=== PATIENT | female | born 1945 | race Caucasian/White ===

== ENCOUNTER 2020-12-17 11:58 | Outpatient (CLI) | payer MEDICARE, BC ==
[2020-12-18 13:03] LABS: SARS-CoV-2 PCR by NAA Not Detected (NotDetected)
== END 2020-12-17 11:59 | disposition home or self-care (01) ==
LOC: LABBT 11:58
PROVIDERS: ATTEND Ophthalmology Retina Specialist
DX: Z01.812 Encounter for preprocedural laboratory examination (principal); Z20.822 Contact with and (suspected) exposure to COVID-19
CPT/HCPCS: U0003; U0005

== ENCOUNTER 2020-12-22 05:52 | Day surgery (SDC) | payer MEDICARE, BC ==
[2020-12-21 12:18] VITALS: BMI 35.3
[2020-12-22] MEDS ORDERED: Cyclopentolate 1% Opth Drop 2 ML BOT ONE (06:14)
[2020-12-22] MEDS ORDERED: Phenylephrine 2.5% Ophth Soln 5 ML BOT ONE (06:14)
[2020-12-22] MEDS ORDERED: Midazolam HCl 2 mg/2 ml Vial ONE (06:19)
[2020-12-22] MEDS ORDERED: Fentanyl 100 MCG/2 ML VIAL ONE (06:19)
[2020-12-22] MEDS ORDERED: PROPOFOL 20 ML ONE (06:19)
[2020-12-22] MEDS ORDERED: EPINEPHrine 0.3 MG in Ophthalmic Irrigation Solution 500 ML IRR SCH (06:30)
[2020-12-22] MEDS ORDERED: Maxitrol 0.1% Opth Oint 3.5 GM TUBE ONE (07:18)
[2020-12-22] MEDS ORDERED: Triamcinolone 40 MG/ML VIAL ONE (07:18)
[2020-12-22] MEDS ORDERED: Bupivacaine PF 0.75% SDV 10 ML ONE (07:18)
[2020-12-22] MEDS ORDERED: Lidocaine 4% PF 5 ML AMP ONE (07:18)
[2020-12-22] MEDS ORDERED: Indocyanine Green 25 MG/10 ML VIAL ONE (07:18)
== END 2020-12-22 08:30 | disposition home or self-care (01) ==
LOC: SDC 05:52
PROVIDERS: ATTEND Ophthalmology Retina Specialist
PROC: 08T43ZZ Resection of Right Vitreous, Percutaneous Approach (ICD-10-PCS; principal; 2020-12-22)
PROC: 08NE3ZZ Release Right Retina, Percutaneous Approach (ICD-10-PCS; 2020-12-22)
DX: H35.371 Puckering of macula, right eye (principal); M19.90 Unspecified osteoarthritis, unspecified site; Z79.899 Other long term (current) drug therapy; Z88.0 Allergy status to penicillin; Z88.2 Allergy status to sulfonamides; Z88.5 Allergy status to narcotic agent
CPT/HCPCS: J0171; J2250; J2704; J3010; J3301; J3490

== ENCOUNTER 2023-02-08 09:58 | Outpatient (CLI) | payer MEDICARE, BC | END 2023-02-08 09:59 | disposition home or self-care (01) | LOC: SCSMRI 09:58 | PROVIDERS: ATTEND Psychiatry & Neurology Neurology | DX: R25.1 Tremor, unspecified (principal); I67.89 Other cerebrovascular disease | CPT/HCPCS: 70551 ==

== ENCOUNTER 2023-09-28 12:45 | Outpatient (CLI) | payer MEDICARE, BC | END 2023-09-28 12:46 | disposition home or self-care (01) | LOC: SCSMRI 12:45 | PROVIDERS: ATTEND Psychiatry & Neurology Neurology | DX: M48.061 Spinal stenosis, lumbar region without neurogenic claudication (principal); M51.26 Other intervertebral disc displacement, lumbar region; M51.27 Other intervertebral disc displacement, lumbosacral region | CPT/HCPCS: 72158 ==

== ENCOUNTER 2024-02-04 21:58 | Inpatient (IN) | payer MEDICARE, BC ==
[~2024-02-04 21:58] MED LIST: Iopamidol-370 76% 500 ML MDV (1 ML CHARGE) ONE
[2024-02-04 22:47] LABS: #Basophils 0.03 10x3/uL (0.0-0.2); %Basophils 0.3 % (0.0-1.0); %Eosinophils 2.6 % (0.0-10.0); %Lymphocytes 25.7 % (21.0-51.0); %Monocytes 10.1 % (0.0-10.0); Hematocrit 33.3 % (36.0-47.0); Mean Corpuscular Hemoglobin 30.8 pg (27.0-31.0); Mean Corpuscular Volume 93.3 fL (78.0-98.0); Mean Platelet Volume 9.5 fL (7.4-10.4); Platelet Count 243 10x3/uL (130-400); RBC Distribution Width 12.8 % (11.5-14.5); Red Blood Cell (RBC) Count 3.57 mill/uL (4.20-5.40)
[2024-02-04 23:00] LABS: INR-International Normal Ratio 0.9; PTT 29.8 sec (22.9-36.1); Prothrombin Time 12.5 sec (12.0-14.7)
[2024-02-04 23:04] LABS: ALT (SGPT) 11 U/L (8-55); AST (SGOT) 22 U/L (5-34); Albumin 3.6 g/dL (3.4-4.8); Alkaline Phosphatase 82 U/L (40-110); Anion Gap 13 mmol/L (10-20); BUN (Urea Nitrogen) 22 mg/dL (9.8-20.1); Bilirubin, Total 0.3 mg/dL (0.2-1.2); Calc. Creatinine Clearance 0 mL/min (70-130); Calcium 9.3 mg/dL (7.8-10.44); Carbon Dioxide 25 mmol/L (23-31); Chloride 105 mmol/L (98-107); Estimated GFR 59; Globulin 3.5 g/dL (2.4-3.5); Glucose 110 mg/dL (83-110); Lipase 36 U/L (8-78); Potassium 3.9 mmol/L (3.5-5.1); Protein, Total 7.1 g/dL (5.8-8.1); Sodium 139 mmol/L (136-145)
[2024-02-04 23:16] LABS: Troponin I 0.809 ng/mL (< 0.028)
[2024-02-04] MEDS ORDERED: Acetaminophen 500 MG TAB ONE (23:43)
[2024-02-04] MEDS ORDERED: Enoxaparin 30 MG (0.3 mL) SYRINGE ONE (23:43)
[2024-02-05] MEDS ORDERED: Ondansetron PF 4 MG/2 ML Vial IVP PRN ×2 (01:00→19:33)
[2024-02-05] MEDS ORDERED: Ondansetron ODT 4 MG TAB SL PRN (01:00)
[2024-02-05] MEDS ORDERED: fentaNYL 50 mcg/mL 1 mL Vial ONE ×2 (01:29→10:29)
[2024-02-05] MEDS ORDERED: Acetaminophen 650 MG Suppository PR PRN (01:31)
[2024-02-05] MEDS ORDERED: hydrALAZINE 20 MG/ML VIAL SLOW IVP PRN ×2 (01:39→03:56)
[2024-02-05 02:07] LABS: Troponin I 10.426 ng/mL (< 0.028)
[2024-02-05 04:52] VITALS: BMI 41.8
[2024-02-05] MEDS: Amlodipine 10 MG TAB PO SCH (05:06)
[2024-02-05] MEDS: Nitroglycerin 0.4 MG TAB (25 Tab Bottle) SL PRN (05:22)
[2024-02-05 06:10] LABS: #Basophils 0.03 10x3/uL (0.0-0.2); %Basophils 0.3 % (0.0-1.0); %Eosinophils 1.4 % (0.0-10.0); %Lymphocytes 30.7 % (21.0-51.0); %Monocytes 9.5 % (0.0-10.0); %Neutrophils 57.8 % (42.0-75.0); Hematocrit 31.8 % (36.0-47.0); Hemoglobin 10.5 g/dL (12.0-16.0); Mean Corpuscular Hemoglobin 30.5 pg (27.0-31.0); Mean Corpuscular Volume 92.4 fL (78.0-98.0); Mean Platelet Volume 9.8 fL (7.4-10.4); Platelet Count 216 10x3/uL (130-400); RBC Distribution Width 12.9 % (11.5-14.5); Red Blood Cell (RBC) Count 3.44 mill/uL (4.20-5.40)
[2024-02-05 06:28] LABS: Anion Gap 11 mmol/L (10-20); BUN (Urea Nitrogen) 21 mg/dL (9.8-20.1); Calc. Creatinine Clearance 85 mL/min (70-130); Calcium 8.8 mg/dL (7.8-10.44); Carbon Dioxide 26 mmol/L (23-31); Chloride 108 mmol/L (98-107); Estimated GFR 68; Glucose 100 mg/dL (83-110); Potassium 3.8 mmol/L (3.5-5.1); Sodium 141 mmol/L (136-145)
[2024-02-05 06:31] LABS: Troponin I 23.454 ng/mL (< 0.028)
[2024-02-05] MEDS: Nitroglycerin 2% Ointment 1 INCH/1 GM Packet TOP SCH ×2 (07:09→08:52)
[2024-02-05] MEDS: Nitroglycerin 0.4 MG TAB (25 Tab Bottle) SL STA (08:37)
[2024-02-05] MEDS: Aspirin Chewable 81 MG TAB PO SCH (08:54)
[2024-02-05] MEDS: Pantoprazole 40 MG VIAL IVP SCH (08:54)
[2024-02-05] MEDS ORDERED: Communication Order-Pharmacy FS SCH (09:15)
[2024-02-05] MEDS: Sodium Chloride 0.9% 1,000 ML IV SCH ×2 (10:15→16:46)
[2024-02-05] MEDS ORDERED: Midazolam HCl 2 mg/2 ml Vial ONE (10:29)
[2024-02-05] MEDS ORDERED: Lidocaine 1% (PF) 30 ML VIAL ONE (10:41)
[2024-02-05] MEDS ORDERED: Clopidogrel Bisulfate 300 MG TAB ONE (10:57)
[2024-02-05] MEDS ORDERED: Nitroglycerin 50 MG/250 ML BOT 250 ML ONE (11:35)
[2024-02-05] MEDS ORDERED: Heparin 10,000 UNITS/ 10 ML VIAL ONE ×2 (11:35→11:42)
[2024-02-05] MEDS ORDERED: Enoxaparin 100 MG (1 mL) SYRINGE SC SCH (12:00)
[2024-02-05] MEDS ORDERED: Acetaminophen 325 MG TAB ONE (13:43)
[2024-02-05] MEDS ORDERED: Lisinopril 10 MG TAB ONE (13:44)
[2024-02-05] MEDS: Lisinopril 10 MG TAB PO SCH ×2 (13:49→20:11)
[2024-02-05] MEDS: Acetaminophen 325 MG TAB PO PRN (13:50)
[2024-02-05] MEDS ORDERED: Iopamidol 370 76% 100 ML VIAL ONE (14:50)
[2024-02-05] MEDS: fentaNYL 50 mcg/mL 1 mL Vial SLOW IVP PRN (16:29)
[2024-02-05] MEDS: Gabapentin 300 MG CAP PO SCH (18:25)
[2024-02-05] MEDS: Lorazepam 0.5 MG TAB PO PRN (18:25)
[2024-02-05] MEDS ORDERED: Lorazepam 2 MG/ML VIAL SLOW IVP PRN (19:07)
[2024-02-05] MEDS ORDERED: Promethazine HCl 12.5 MG in Sodium Chloride 0.9% 50 ML IVPB PRN (19:32)
[2024-02-05] MEDS: Atorvastatin Calcium 40 MG TAB PO SCH (20:11)
[2024-02-05] MEDS: cloNIDine 0.2 MG TAB PO SCH (20:11)
[2024-02-05] MEDS: traZODone HCl 50 MG TAB PO SCH (20:11)
[2024-02-05] MEDS ORDERED: cloNIDine 0.3 MG TAB PO SCH (21:00)
[2024-02-06 05:25] LABS: #Basophils Less than 0.03 10x3/uL (0.0-0.2); #Eosinphils Less than 0.03 10x3/uL (0.0-0.7); %Basophils 0.2 % (0.0-1.0); %Eosinophils 0.1 % (0.0-10.0); %Lymphocytes 15.7 % (21.0-51.0); %Monocytes 11.3 % (0.0-10.0); %Neutrophils 72.3 % (42.0-75.0); Hematocrit 30.8 % (36.0-47.0); Hemoglobin 10.1 g/dL (12.0-16.0); Mean Corpuscular HGB CONC 32.8 g/dL (32.0-36.0); Mean Corpuscular Hemoglobin 30.4 pg (27.0-31.0); Mean Corpuscular Volume 92.8 fL (78.0-98.0); Mean Platelet Volume 10.2 fL (7.4-10.4); Platelet Count 220 10x3/uL (130-400); RBC Distribution Width 13.1 % (11.5-14.5); Red Blood Cell (RBC) Count 3.32 mill/uL (4.20-5.40)
[2024-02-06 06:00] LABS: ALT (SGPT) 22 U/L (8-55); AST (SGOT) 99 U/L (5-34); Albumin 3.2 g/dL (3.4-4.8); Alkaline Phosphatase 70 U/L (40-110); Anion Gap 11 mmol/L (10-20); BUN (Urea Nitrogen) 14 mg/dL (9.8-20.1); Bilirubin, Total 0.6 mg/dL (0.2-1.2); Calc. Creatinine Clearance 89 mL/min (70-130); Calcium 8.5 mg/dL (7.8-10.44); Carbon Dioxide 23 mmol/L (23-31); Cardiac Risk 3.9 (Less than 4.5); Chloride 108 mmol/L (98-107); Cholesterol 178 mg/dl (< 200 Desired); Estimated GFR 72; Globulin 2.9 g/dL (2.4-3.5); Glucose 99 mg/dL (83-110); HDL Cholesterol 46 mg/dL (>60 Neg Risk); LDL Cholesterol, Calculated 118 mg/dL; Potassium 3.7 mmol/L (3.5-5.1); Protein, Total 6.1 g/dL (5.8-8.1); Sodium 138 mmol/L (136-145); Triglycerides 72 mg/dL (Less than 150)
[2024-02-06 06:05] LABS: Hemoglobin A1c 5.4 % (4.0-6.0)
[2024-02-06] MEDS: Amlodipine 10 MG TAB PO SCH (09:25)
[2024-02-06] MEDS: Gabapentin 300 MG CAP PO SCH (09:25)
[2024-02-06] MEDS: Clopidogrel Bisulfate 75 MG TAB PO SCH (09:25)
[2024-02-06 19:02] LABS: Troponin I 12.987 ng/mL (< 0.028)
[2024-02-07] MEDS: Pantoprazole DR 40 MG TAB PO SCH (08:51)
[2024-02-08] MEDS: Sodium Chloride 0.9% 500 ML IV SCH (01:38)
[2024-02-09 20:10] VITALS: BP 130/70; TEMP 98.2
== END 2024-02-09 19:40 | DRG 322 ==
LOC: ERS 21:58 → ERHOLD 02-05 00:52 → 2NO 02-05 04:22 → OBSVTOIN 02-05 07:30
PROVIDERS: ADMIT Student in an Organized Health Care Education/Training Program; ATTEND Internal Medicine
PROC: 027034Z Dilation of Coronary Artery, One Artery with Drug-eluting Intraluminal Device, Percutaneous Approach (ICD-10-PCS; principal; 2024-02-05)
PROC: 4A023N7 Measurement of Cardiac Sampling and Pressure, Left Heart, Percutaneous Approach (ICD-10-PCS; 2024-02-05)
PROC: B2151ZZ Fluoroscopy of Left Heart using Low Osmolar Contrast (ICD-10-PCS; 2024-02-05)
PROC: B2111ZZ Fluoroscopy of Multiple Coronary Arteries using Low Osmolar Contrast (ICD-10-PCS; 2024-02-05)
DX: I21.4 Non-ST elevation (NSTEMI) myocardial infarction (principal); I16.1 Hypertensive emergency; Z68.41 Body mass index [BMI] 40.0-44.9, adult; M19.90 Unspecified osteoarthritis, unspecified site; I10 Essential (primary) hypertension; I45.10 Unspecified right bundle-branch block; E78.00 Pure hypercholesterolemia, unspecified; E66.9 Obesity, unspecified; R53.81 Other malaise; K21.9 Gastro-esophageal reflux disease without esophagitis; K44.9 Diaphragmatic hernia without obstruction or gangrene; Z88.5 Allergy status to narcotic agent; Z88.0 Allergy status to penicillin; Z88.2 Allergy status to sulfonamides; Z79.899 Other long term (current) drug therapy; Z98.890 Other specified postprocedural states
CPT/HCPCS: 36415; 71045; 71275; 76936; 80048; 80053; 80061; 83036; 83690; 83735; 83880; 84443; 84484; 85025; 85347; 85610; 85730; 92928; 93005; 93010; 93306; 93458; 93798; 94760; 96374; 99152; 99153; C1769; C1874; C1887; C9113; C9600; J1644; J1650; J2001; J2250; J3010; J7030; J7050; Q9967

== ENCOUNTER 2024-09-13 18:41 | Emergency (ER) | payer MEDICARE, BC ==
[2024-09-13 19:55] LABS: #Basophils 0.03 10x3/uL (0.0-0.2); %Basophils 0.3 % (0.0-1.0); %Eosinophils 0.9 % (0.0-10.0); %Lymphocytes 36.6 % (21.0-51.0); %Monocytes 10.5 % (0.0-10.0); %Neutrophils 51.4 % (42.0-75.0); Hematocrit 30.7 % (36.0-47.0); Hemoglobin 10.5 g/dL (12.0-16.0); Mean Corpuscular HGB CONC 34.2 g/dL (32.0-36.0); Mean Corpuscular Hemoglobin 29.7 pg (27.0-31.0); Mean Corpuscular Volume 86.7 fL (78.0-98.0); Mean Platelet Volume 10.2 fL (7.4-10.4); Platelet Count 232 10x3/uL (130-400); RBC Distribution Width 13.8 % (11.5-14.5); Red Blood Cell (RBC) Count 3.54 mill/uL (4.20-5.40)
[2024-09-13 20:06] LABS: Prothrombin Time 13.7 sec (12.0-14.7)
[2024-09-13 20:07] LABS: PTT 29.7 sec (22.9-36.1)
[2024-09-13 20:11] LABS: ALT (SGPT) 15 U/L (Less than 34); AST (SGOT) 33 U/L (11-34); Albumin 3.8 g/dL (3.1-4.5); Alkaline Phosphatase 91 U/L (40-110); Anion Gap 14 mmol/L (10-20); BUN (Urea Nitrogen) 20 mg/dL (9.8-20.1); Bilirubin, Total 0.4 mg/dL (0.3-1.2); Calc. Creatinine Clearance 0 mL/min (70-130); Calcium 9.4 mg/dL (7.8-10.44); Carbon Dioxide 23 mmol/L (23-31); Chloride 105 mmol/L (98-107); Estimated GFR 40; Globulin 3.5 g/dL (2.4-3.5); Glucose 77 mg/dL (83-110); Potassium 3.5 mmol/L (3.5-5.1); Protein, Total 7.3 g/dL (5.8-8.1); Sodium 138 mmol/L (136-145)
[2024-09-13 20:15] LABS: Troponin I 0.014 ng/mL (< 0.028)
== END 2024-09-13 22:03 | disposition home or self-care (01) ==
LOC: ERS 18:41
DX: I71.019 Dissection of thoracic aorta, unspecified (principal); I25.2 Old myocardial infarction; I10 Essential (primary) hypertension; K21.9 Gastro-esophageal reflux disease without esophagitis; Z79.899 Other long term (current) drug therapy; Z96.659 Presence of unspecified artificial knee joint
CPT/HCPCS: 36415; 80053; 84484; 85025; 85610; 85730; 86850; 86900; 86901; 93005; 99285

== ENCOUNTER 2025-06-02 05:47 | Day surgery (SDC) | payer MEDICARE, BC ==
[2025-05-30 11:56] VITALS: BMI 41.2
[2025-06-02] MEDS ORDERED: Bupivacaine 0.25% HCL 30 ML VIAL ONE (06:24)
[2025-06-02] MEDS ORDERED: Lidocaine 1% (PF) 30 ML VIAL ONE (06:24)
[2025-06-02] MEDS ORDERED: Tranexamic Acid 1,000 MG/10 ML VIAL ONE (06:32)
[2025-06-02] MEDS ORDERED: Heparin 5,000 UNITS/ML VIAL ONE (06:32)
[2025-06-02] MEDS ORDERED: Famotidine/PF 20 mg/2ml Vial ONE (06:51)
[2025-06-02] MEDS ORDERED: fentaNYL PF 100 MCG/2 ML SYRINGE ONE (06:53)
[2025-06-02] MEDS ORDERED: Ondansetron PF 4 MG/2 ML Vial ONE (06:54)
[2025-06-02] MEDS ORDERED: Lidocaine 1% PF 5 ML VIAL ONE (06:54)
[2025-06-02] MEDS ORDERED: CEFAZOLIN 2 GM VIAL ONE (06:58)
[2025-06-02] MEDS ORDERED: PHENYLEPHRINE-NS 100 MCG/ML 10 ML SYRINGE ONE (07:46)
[2025-06-02] MEDS ORDERED: PROPOFOL 200 MG/20 ML VIAL ONE (10:00)
== END 2025-06-02 14:00 | disposition home or self-care (01) ==
LOC: SDC 05:47
PROVIDERS: ATTEND Plastic Surgery
PROC: 0HBV0ZZ Excision of Bilateral Breast, Open Approach (ICD-10-PCS; principal; 2025-06-02)
DX: N62 Hypertrophy of breast (principal); D05.11 Intraductal carcinoma in situ of right breast; N60.12 Diffuse cystic mastopathy of left breast; N60.11 Diffuse cystic mastopathy of right breast; L82.1 Other seborrheic keratosis; I50.9 Heart failure, unspecified; Z98.41 Cataract extraction status, right eye; Z98.42 Cataract extraction status, left eye; Z96.659 Presence of unspecified artificial knee joint; Z88.5 Allergy status to narcotic agent; Z88.0 Allergy status to penicillin; Z88.2 Allergy status to sulfonamides; Z79.02 Long term (current) use of antithrombotics/antiplatelets; Z79.82 Long term (current) use of aspirin; Z79.899 Other long term (current) drug therapy
CPT/HCPCS: 19318; J0169; J0665; J1100; J1308; J1644; J2405; J2704; J3373; 88305; 88341; 88342; 88361; J2003